=== PATIENT | male | born 1970 | race Caucasian/White ===

== ENCOUNTER 2019-10-28 09:18 | Outpatient (CLI) | payer BC ==
--- NOTE | 2019-10-28 11:03 | Diagnostic Imaging Report ---
Indication: Cough Technique: 2 views of the chest Comparison: None Findings: Lungs and pleural spaces are clear. The heart size is normal. The bones are unremarkable. No significant interim change. Impression: Negative
== END 2019-10-28 11:18 | disposition home or self-care (01) ==
LOC: RAD 09:18
DX: R05 Cough (principal)
CPT/HCPCS: 71046